=== PATIENT | female | born 1985 | race Caucasian/White ===

== ENCOUNTER 2017-05-02 11:16 | Inpatient (IN) | payer BC ==
[~2017-05-02] VITALS: Ht 157.5 cm; Wt 48.8 kg
[2017-05-02] MEDS ORDERED: PERCOT PO (11:59)
[2017-05-02] MEDS ORDERED: ALPRAZolam 0.5 MG TAB PO PRN (12:00)
[2017-05-02] MEDS: SODIUM CHLORIDE 0.9% 1,000 ML IV SCH ×2 (12:00→20:39)
[2017-05-02 12:30] VITALS: BP 124/74
[2017-05-02] MEDS: MORPHINE SULF INJ 2 MG/ML SYRINGE 1ML IV PRN ×2 (12:43→17:15)
[2017-05-02 14:00] VITALS: BP 107/71
[2017-05-02 14:33] LABS: Basophils # (auto) 0 uL; Basophils % (auto) 0.2 % (0.0-2.0); DEFINITIVE VIEW TRANSMISSION; Eosinophils # (auto) 0.1 uL; Eosinophils % (auto) 0.7 % (0.0-7.0); Hematocrit 23.9 % (36.0-46.0); Hemoglobin 7.1 g/dL (12.2-16.2); Lymphocytes # (auto) 2.3 uL; Lymphocytes % (auto) 18.3 % (10.0-50.0); Mean Corpuscular Hemoglobin 18.4 pg (28.0-32.0); Mean Corpuscular Hgb Conc. 29.9 g/dL (32.0-36.0); Mean Corpuscular Volume 61.7 fL (80.0-100.0); Mean Platelet Volume 10.1 fL (7.4-10.4); Monocytes % (auto) 15.9 % (0.0-12.0); Neutrophils # (auto) 8.1 uL; Neutrophils % (auto) 64.9 % (37.0-80.0); Platelet Count (auto) 352 10^3/uL (140-450); Red Cell Distribution Width 19.1 % (11.6-16.0); White Blood Cell 12.4 10^3/uL (4.4-10.8)
[2017-05-02] MEDS: metroNIDAZOLE 500MG/100ML 100 ML IV SCH ×2 (14:49→21:46)
[2017-05-02] MEDS: HYDROcodone-ACET 10/325MG TAB PO PRN (14:49)
[2017-05-02 15:22] LABS: Potassium 3.4 mmol/L (3.5-5.1)
[2017-05-02 15:27] LABS: Albumin 2.6 g/dL (3.4-5.0); BUN/Creatinine Ratio 23.2; Calcium 8.2 mg/dL (8.5-10.1)
[2017-05-02 15:32] LABS: Bilirubin, Total 0.2 mg/dL (0.2-1.0); Total Protein 6.3 g/dL (6.4-8.2)
[2017-05-02 17:02] VITALS: BP 106/62
[2017-05-02 17:21] LABS: Hypochromia Marked; Microcytosis Marked
[2017-05-02 17:22] LABS: Anisocytosis Moderate; Ovalocytes FEW; Platelet Estimate Adequate; Polychromasia Slight; Stomatocytes Moderate; Tear Drop Cells FEW
[2017-05-02] MEDS: HYDROmorphone HCL 2 MG/ML VL IV PRN (20:34)
[2017-05-02] MEDS: methylPREDNISolone SOD SUCC 125 MG/2 ML VL IV SCH (21:47)
[2017-05-02 22:00] VITALS: BP 110/65
[2017-05-02] MEDS ORDERED: CIPROFLOXACIN 400MG/200ML 200 ML IV SCH (22:00)
[2017-05-03] VITALS (9 sets, daily range): BP systolic 99–116; BP diastolic 53–76
[2017-05-03] MEDS: HYDROmorphone HCL 2 MG/ML VL IV PRN ×7 (00:30→22:00)
[2017-05-03] MEDS: SODIUM CHLORIDE 0.9% 1,000 ML IV SCH ×3 (04:05→20:11)
[2017-05-03] MEDS: HYDROcodone-ACET 10/325MG TAB PO PRN ×3 (04:14→14:06)
[2017-05-03] MEDS: metroNIDAZOLE 500MG/100ML 100 ML IV SCH ×3 (06:36→21:48)
[2017-05-03 06:56] LABS: DEFINITIVE VIEW TRANSMISSION; Hematocrit 21.1 % (36.0-46.0); Mean Corpuscular Hemoglobin 18.4 pg (28.0-32.0); Mean Corpuscular Hgb Conc. 30.1 g/dL (32.0-36.0); Mean Corpuscular Volume 61.2 fL (80.0-100.0); Mean Platelet Volume 8.7 fL (7.4-10.4); Platelet Count (auto) 291 10^3/uL (140-450); Red Cell Distribution Width 18.7 % (11.6-16.0); SUSPECT VIEW TRANSMISSION; White Blood Cell 10.1 10^3/uL (4.4-10.8)
[2017-05-03 07:09] LABS: Hemoglobin 6.4 g/dL (12.2-16.2)
[2017-05-03 07:10] LABS: Metamyelocytes % 0; Myelocytes % 0; Promyelocytes % 0; Reactive Lymphocytes 0
[2017-05-03 07:30] LABS: Albumin 2.4 g/dL (3.4-5.0); BUN/Creatinine Ratio 15.3; Bilirubin, Total 0.2 mg/dL (0.2-1.0); Calcium 7.8 mg/dL (8.5-10.1); Total Protein 5.6 g/dL (6.4-8.2)
[2017-05-03 07:35] LABS: Anisocytosis Moderate; Hypochromia Marked; Microcytosis Moderate; Platelet Estimate Adequate; Polychromasia Slight; Schistocytes FEW
[2017-05-03] MEDS: methylPREDNISolone SOD SUCC 125 MG/2 ML VL IV SCH ×2 (10:20→21:48)
[2017-05-03] MEDS: VANCOMYCIN HCL 125MG/5ML ORAL SOL PO SCH ×2 (14:02→17:54)
[2017-05-03 17:01] LABS: Hematocrit 27.3 % (36.0-46.0); Hemoglobin 8.3 g/dL (12.2-16.2)
[2017-05-04] MEDS: VANCOMYCIN HCL 125MG/5ML ORAL SOL PO SCH ×4 (00:10→18:08)
[2017-05-04] MEDS: HYDROmorphone HCL 2 MG/ML VL IV PRN ×6 (02:33→21:12)
[2017-05-04] MEDS: SODIUM CHLORIDE 0.9% 1,000 ML IV SCH ×3 (04:24→21:04)
[2017-05-04 05:24] VITALS: BP 115/78
[2017-05-04] MEDS: metroNIDAZOLE 500MG/100ML 100 ML IV SCH ×3 (05:33→21:08)
[2017-05-04 05:43] LABS: Basophils # (auto) 0 uL; DEFINITIVE VIEW TRANSMISSION; Eosinophils # (auto) 0 uL; Eosinophils % (auto) 0.1 % (0.0-7.0); Hematocrit 25.9 % (36.0-46.0); Hemoglobin 7.7 g/dL (12.2-16.2); Lymphocytes # (auto) 1.3 uL; Lymphocytes % (auto) 8.1 % (10.0-50.0); Mean Corpuscular Hemoglobin 20.4 pg (28.0-32.0); Mean Corpuscular Hgb Conc. 29.8 g/dL (32.0-36.0); Mean Corpuscular Volume 68.4 fL (80.0-100.0); Mean Platelet Volume 10.1 fL (7.4-10.4); Monocytes # (auto) 1.5 uL; Monocytes % (auto) 9.3 % (0.0-12.0); Neutrophils # (auto) 13.3 uL; Neutrophils % (auto) 82.5 % (37.0-80.0); Platelet Count (auto) 319 10^3/uL (140-450); SUSPECT VIEW TRANSMISSION; White Blood Cell 16.1 10^3/uL (4.4-10.8)
[2017-05-04 05:59] LABS: Albumin 2.2 g/dL (3.4-5.0); Calcium 7.4 mg/dL (8.5-10.1); Potassium 4.6 mmol/L (3.5-5.1)
[2017-05-04 06:01] LABS: BUN/Creatinine Ratio 12.7
[2017-05-04 06:04] LABS: Bilirubin, Total 0.1 mg/dL (0.2-1.0); Total Protein 5.7 g/dL (6.4-8.2)
[2017-05-04 06:10] LABS: Anisocytosis Moderate; Hypochromia Marked; Microcytosis Marked; Ovalocytes FEW; Platelet Estimate Adequate; Polychromasia Slight
[2017-05-04 08:55] VITALS: BP 97/59
[2017-05-04] MEDS: methylPREDNISolone SOD SUCC 125 MG/2 ML VL IV SCH ×2 (09:07→21:08)
[2017-05-04] MEDS: HYDROcodone-ACET 10/325MG TAB PO PRN (10:40)
[2017-05-04 13:00] VITALS: BP 106/71
[2017-05-04 17:00] VITALS: BP 108/71
[2017-05-04 22:08] VITALS: BP 108/72
[2017-05-05] MEDS: VANCOMYCIN HCL 125MG/5ML ORAL SOL PO SCH ×4 (00:09→18:45)
[2017-05-05] MEDS: HYDROmorphone HCL 2 MG/ML VL IV PRN ×8 (00:09→21:49)
[2017-05-05 04:51] VITALS: BP 111/77
[2017-05-05] MEDS: SODIUM CHLORIDE 0.9% 1,000 ML IV SCH ×3 (05:25→21:48)
[2017-05-05 06:00] LABS: Basophils # (auto) 0 uL; DEFINITIVE VIEW TRANSMISSION; Eosinophils # (auto) 0 uL; Hematocrit 24.1 % (36.0-46.0); Hemoglobin 7.2 g/dL (12.2-16.2); Lymphocytes # (auto) 1.3 uL; Mean Corpuscular Hemoglobin 20.4 pg (28.0-32.0); Mean Corpuscular Volume 68.1 fL (80.0-100.0); Mean Platelet Volume 10.1 fL (7.4-10.4); Monocytes # (auto) 0.9 uL; Monocytes % (auto) 6.1 % (0.0-12.0); Neutrophils # (auto) 12.5 uL; Neutrophils % (auto) 84.9 % (37.0-80.0); Platelet Count (auto) 354 10^3/uL (140-450); SUSPECT VIEW TRANSMISSION; White Blood Cell 14.7 10^3/uL (4.4-10.8)
[2017-05-05 06:06] LABS: Red Cell Distribution Width 24.6 % (11.6-16.0)
[2017-05-05] MEDS: metroNIDAZOLE 500MG/100ML 100 ML IV SCH ×3 (06:11→21:49)
[2017-05-05 06:22] LABS: Albumin 2.2 g/dL (3.4-5.0); BUN/Creatinine Ratio 17.9; Bilirubin, Total 0.1 mg/dL (0.2-1.0); Calcium 7.5 mg/dL (8.5-10.1); Potassium 4.3 mmol/L (3.5-5.1); Total Protein 5.1 g/dL (6.4-8.2)
[2017-05-05 07:46] LABS: Anisocytosis Moderate; Hypochromia Marked; Microcytosis Marked
[2017-05-05 07:47] LABS: Ovalocytes FEW; Platelet Estimate Adequate; Tear Drop Cells FEW
[2017-05-05 07:48] LABS: Burr Cells FEW
[2017-05-05 09:00] VITALS: BP 117/79
[2017-05-05] MEDS: methylPREDNISolone SOD SUCC 125 MG/2 ML VL IV SCH ×2 (09:16→21:48)
[2017-05-05 12:37] VITALS: BP 121/75
[2017-05-05 17:00] VITALS: BP 128/74
[2017-05-05] MEDS: ZOLPIDEM TARTRATE 5 MG TAB PO PRN (21:49)
[2017-05-05 21:52] VITALS: BP 121/80
[2017-05-06] MEDS: VANCOMYCIN HCL 125MG/5ML ORAL SOL PO SCH ×4 (00:07→18:28)
[2017-05-06] MEDS: HYDROmorphone HCL 2 MG/ML VL IV PRN ×7 (02:05→21:48)
[2017-05-06] MEDS: SODIUM CHLORIDE 0.9% 1,000 ML IV SCH ×3 (02:05→20:39)
[2017-05-06 05:08] VITALS: BP 115/74
[2017-05-06] MEDS: metroNIDAZOLE 500MG/100ML 100 ML IV SCH ×3 (05:18→21:47)
[2017-05-06 06:18] LABS: Potassium 3.9 mmol/L (3.5-5.1)
[2017-05-06 06:24] LABS: Albumin 2.5 g/dL (3.4-5.0); BUN/Creatinine Ratio 11.4; Calcium 8.1 mg/dL (8.5-10.1)
[2017-05-06 06:26] LABS: Bilirubin, Total 0.1 mg/dL (0.2-1.0); Total Protein 6.1 g/dL (6.4-8.2)
[2017-05-06 06:45] LABS: DEFINITIVE VIEW TRANSMISSION; Hematocrit 28.5 % (36.0-46.0); Hemoglobin 8.6 g/dL (12.2-16.2); Mean Corpuscular Hemoglobin 20.5 pg (28.0-32.0); Mean Corpuscular Hgb Conc. 30.1 g/dL (32.0-36.0); Mean Platelet Volume 9.1 fL (7.4-10.4); Platelet Count (auto) 359 10^3/uL (140-450); Red Cell Distribution Width 24.8 % (11.6-16.0); SUSPECT VIEW TRANSMISSION
[2017-05-06 06:46] LABS: Metamyelocytes % 0; Promyelocytes % 0; Reactive Lymphocytes 0
[2017-05-06 07:14] LABS: Myelocytes % 1
[2017-05-06 07:15] LABS: Anisocytosis Moderate; Hypochromia Marked; Microcytosis Marked; Platelet Estimate Adequate
[2017-05-06 07:17] LABS: Burr Cells FEW; Ovalocytes FEW; Tear Drop Cells FEW
[2017-05-06 09:00] VITALS: BP 112/74
[2017-05-06] MEDS: methylPREDNISolone SOD SUCC 125 MG/2 ML VL IV SCH ×2 (09:05→21:47)
[2017-05-06 17:00] VITALS: BP 126/76
[2017-05-06 22:28] VITALS: BP 136/82
[2017-05-07] MEDS: VANCOMYCIN HCL 125MG/5ML ORAL SOL PO SCH ×4 (00:40→17:48)
[2017-05-07] MEDS: ZOLPIDEM TARTRATE 5 MG TAB PO PRN (00:41)
[2017-05-07] MEDS: HYDROmorphone HCL 2 MG/ML VL IV PRN ×6 (00:42→20:45)
[2017-05-07] MEDS: SODIUM CHLORIDE 0.9% 1,000 ML IV SCH ×3 (04:39→20:00)
[2017-05-07 05:06] VITALS: BP 134/68
[2017-05-07] MEDS: metroNIDAZOLE 500MG/100ML 100 ML IV SCH ×3 (06:10→23:31)
[2017-05-07 08:49] VITALS: BP 134/79
[2017-05-07] MEDS: methylPREDNISolone SOD SUCC 125 MG/2 ML VL IV SCH ×2 (09:50→23:32)
[2017-05-07 12:52] VITALS: BP 138/90
[2017-05-07] MEDS: HYDROcodone-ACET 10/325MG TAB PO PRN (14:29)
[2017-05-07] MEDS ORDERED: MULTIPLE VITAMINS W/ MINERALS TAB PO ONE (16:30)
[2017-05-07 16:42] VITALS: BP 132/88
[2017-05-07] MEDS ORDERED: SODIUM FERR GLUC 62.5MG/5ML 125 MG in SODIUM CHL 0.9% 100 ML IV ONE (19:45)
[2017-05-07 22:00] VITALS: BP 126/85
[2017-05-08] MEDS: HYDROmorphone HCL 2 MG/ML VL IV PRN ×7 (00:09→21:54)
[2017-05-08] MEDS: VANCOMYCIN HCL 125MG/5ML ORAL SOL PO SCH ×4 (00:20→17:33)
[2017-05-08] MEDS: SODIUM CHLORIDE 0.9% 1,000 ML IV SCH ×3 (04:00→22:00)
[2017-05-08 04:51] VITALS: BP 129/93
[2017-05-08] MEDS: metroNIDAZOLE 500MG/100ML 100 ML IV SCH ×3 (06:02→22:00)
[2017-05-08 08:11] VITALS: BP 128/83
[2017-05-08] MEDS: ONDANSETRON HCL 4 MG/2 ML VIAL IV PRN (09:58)
[2017-05-08] MEDS: methylPREDNISolone SOD SUCC 125 MG/2 ML VL IV SCH ×2 (09:58→21:57)
[2017-05-08] MEDS: MULTIPLE VITAMINS W/ MINERALS TAB PO SCH (09:58)
[2017-05-08] MEDS: SODIUM FERR GLUC 62.5MG/5ML 125 MG in SODIUM CHL 0.9% 100 ML IV SCH (10:00)
[2017-05-08] MEDS ORDERED: SODIUM FERR GLUC 62.5MG/5ML 125 MG in SODIUM CHL 0.9% 100 ML IV SCH (10:00)
[2017-05-08 12:52] VITALS: BP 141/74
[2017-05-08 16:38] VITALS: BP 130/90
[2017-05-08] MEDS: ZOLPIDEM TARTRATE 5 MG TAB PO PRN (21:57)
[2017-05-08 22:00] VITALS: BP 129/75
[2017-05-08] MEDS: METRONIDAZOLE VAGINAL PV SCH (22:00)
[2017-05-09] MEDS: VANCOMYCIN HCL 125MG/5ML ORAL SOL PO SCH ×6 (00:13→23:56)
[2017-05-09] MEDS: HYDROmorphone HCL 2 MG/ML VL IV PRN ×8 (01:11→23:56)
[2017-05-09] MEDS: SODIUM CHLORIDE 0.9% 1,000 ML IV SCH ×3 (04:47→20:03)
[2017-05-09 05:00] VITALS: BP 132/78
[2017-05-09 05:41] LABS: DEFINITIVE VIEW TRANSMISSION; Hematocrit 26.1 % (36.0-46.0); Hemoglobin 8.1 g/dL (12.2-16.2); Mean Corpuscular Hemoglobin 20.7 pg (28.0-32.0); Mean Corpuscular Volume 66.8 fL (80.0-100.0); Mean Platelet Volume 9.1 fL (7.4-10.4); Platelet Count (auto) 330 10^3/uL (140-450); SUSPECT VIEW TRANSMISSION; White Blood Cell 21.4 10^3/uL (4.4-10.8)
[2017-05-09 05:42] LABS: Red Cell Distribution Width 25.9 % (11.6-16.0)
[2017-05-09 05:43] LABS: Metamyelocytes % 0; Myelocytes % 0; Promyelocytes % 0; Reactive Lymphocytes 0
[2017-05-09 05:49] LABS: Albumin 2.2 g/dL (3.4-5.0); BUN/Creatinine Ratio 14.5; Calcium 7.3 mg/dL (8.5-10.1); Potassium 3.9 mmol/L (3.5-5.1)
[2017-05-09 05:51] LABS: Bilirubin, Total 0.1 mg/dL (0.2-1.0); Total Protein 5.3 g/dL (6.4-8.2)
[2017-05-09 06:20] LABS: Platelet Estimate Adequate
[2017-05-09 06:21] LABS: Anisocytosis Marked; Hypochromia Marked; Microcytosis Marked; Polychromasia Slight; Stomatocytes Few
[2017-05-09 06:22] LABS: Ovalocytes FEW
[2017-05-09] MEDS: metroNIDAZOLE 500MG/100ML 100 ML IV SCH ×3 (06:23→21:41)
[2017-05-09 08:00] VITALS: BP 145/74
[2017-05-09 09:00] VITALS: BP_SYST 129; BP_SYST 145; BP_DIAS 70; BP_DIAS 74
[2017-05-09] MEDS: SODIUM FERR GLUC 62.5MG/5ML 125 MG in SODIUM CHL 0.9% 100 ML IV SCH (10:58)
[2017-05-09] MEDS: methylPREDNISolone SOD SUCC 125 MG/2 ML VL IV SCH ×2 (10:58→20:31)
[2017-05-09] MEDS: MULTIPLE VITAMINS W/ MINERALS TAB PO SCH (10:59)
[2017-05-09] MEDS: ONDANSETRON HCL 4 MG/2 ML VIAL IV PRN (10:59)
[2017-05-09 13:00] VITALS: BP 131/88
[2017-05-09 17:00] VITALS: BP 134/79
[2017-05-09] MEDS: ZOLPIDEM TARTRATE 5 MG TAB PO PRN (20:31)
[2017-05-09] MEDS: METRONIDAZOLE VAGINAL PV SCH (21:41)
[2017-05-09 22:00] VITALS: BP 136/73
[2017-05-10] MEDS: HYDROmorphone HCL 2 MG/ML VL IV PRN ×6 (04:47→21:50)
[2017-05-10] MEDS: SODIUM CHLORIDE 0.9% 1,000 ML IV SCH ×3 (04:47→20:00)
[2017-05-10] MEDS: VANCOMYCIN HCL 125MG/5ML ORAL SOL PO SCH ×3 (05:44→18:28)
[2017-05-10] MEDS: metroNIDAZOLE 500MG/100ML 100 ML IV SCH ×3 (05:44→21:50)
[2017-05-10 06:22] LABS: Calcium 7.7 mg/dL (8.5-10.1); DEFINITIVE VIEW TRANSMISSION; Hematocrit 24.7 % (36.0-46.0); Hemoglobin 7.4 g/dL (12.2-16.2); Mean Corpuscular Hemoglobin 20.5 pg (28.0-32.0); Mean Corpuscular Volume 68.2 fL (80.0-100.0); Mean Platelet Volume 9.3 fL (7.4-10.4); Platelet Count (auto) 418 10^3/uL (140-450); Potassium 4.1 mmol/L (3.5-5.1); Red Cell Distribution Width 26.4 % (11.6-16.0); SUSPECT VIEW TRANSMISSION; White Blood Cell 24.9 10^3/uL (4.4-10.8)
[2017-05-10 06:23] LABS: Promyelocytes % 0; Reactive Lymphocytes 0
[2017-05-10 06:26] LABS: Albumin 2.3 g/dL (3.4-5.0); BUN/Creatinine Ratio 15.6
[2017-05-10 06:34] LABS: Bilirubin, Total 0.1 mg/dL (0.2-1.0); Total Protein 5.2 g/dL (6.4-8.2)
[2017-05-10 08:12] LABS: Metamyelocytes % 2; Myelocytes % 3
[2017-05-10 08:14] LABS: Hypochromia Marked; Microcytosis Marked
[2017-05-10 08:15] LABS: Anisocytosis Marked; Platelet Estimate Adequate; Polychromasia Slight
[2017-05-10 09:00] VITALS: BP 128/84
[2017-05-10] MEDS: CIPROFLOXACIN 400MG/200ML 200 ML IV SCH ×2 (09:29→21:50)
[2017-05-10] MEDS: methylPREDNISolone SOD SUCC 125 MG/2 ML VL IV SCH ×2 (09:29→21:50)
[2017-05-10] MEDS: MULTIPLE VITAMINS W/ MINERALS TAB PO SCH (09:29)
[2017-05-10] MEDS: ONDANSETRON HCL 4 MG/2 ML VIAL IV PRN (10:52)
[2017-05-10] MEDS: SODIUM FERR GLUC 62.5MG/5ML 125 MG in SODIUM CHL 0.9% 100 ML IV SCH (10:53)
[2017-05-10 13:00] VITALS: BP 139/77
[2017-05-10 17:00] VITALS: BP 128/81
[2017-05-10 20:00] VITALS: BP 124/70
[2017-05-10] MEDS: METRONIDAZOLE VAGINAL PV SCH (21:51)
[2017-05-10] MEDS: ZOLPIDEM TARTRATE 5 MG TAB PO PRN (22:10)
[2017-05-10 22:20] VITALS: BP 124/70
[2017-05-11] MEDS: VANCOMYCIN HCL 125MG/5ML ORAL SOL PO SCH ×3 (00:33→12:00)
[2017-05-11] MEDS: HYDROmorphone HCL 2 MG/ML VL IV PRN ×8 (00:51→23:24)
[2017-05-11] MEDS: SODIUM CHLORIDE 0.9% 1,000 ML IV SCH ×3 (04:38→20:00)
[2017-05-11 05:26] VITALS: BP 128/77
[2017-05-11] MEDS: metroNIDAZOLE 500MG/100ML 100 ML IV SCH ×3 (06:03→21:51)
[2017-05-11 07:14] LABS: DEFINITIVE Y; Hematocrit 25.5 % (36.0-46.0); Hemoglobin 7.8 g/dL (12.2-16.2); Mean Corpuscular Hemoglobin 21.2 pg (28.0-32.0); Mean Corpuscular Hgb Conc. 30.5 g/dL (32.0-36.0); Mean Corpuscular Volume 69.5 fL (80.0-100.0); Platelet Count (auto) 373 10^3/uL (140-450); SUSPECT Y; White Blood Cell 28.5 10^3/uL (4.4-10.8)
[2017-05-11 07:30] LABS: Albumin 2.4 g/dL (3.4-5.0); BUN/Creatinine Ratio 17.1; Calcium 7.7 mg/dL (8.5-10.1)
[2017-05-11 07:33] LABS: Bilirubin, Total 0.1 mg/dL (0.2-1.0); Total Protein 5.4 g/dL (6.4-8.2)
[2017-05-11 07:40] LABS: Red Cell Distribution Width 26.5 % (11.6-16.0)
[2017-05-11 07:41] LABS: Metamyelocytes % 0; Promyelocytes % 0; Reactive Lymphocytes 0
[2017-05-11 08:29] VITALS: BP 148/78
[2017-05-11] MEDS: SODIUM FERR GLUC 62.5MG/5ML 125 MG in SODIUM CHL 0.9% 100 ML IV SCH (10:51)
[2017-05-11] MEDS: CIPROFLOXACIN 400MG/200ML 200 ML IV SCH ×2 (10:51→21:51)
[2017-05-11] MEDS: MULTIPLE VITAMINS W/ MINERALS TAB PO SCH (10:51)
[2017-05-11] MEDS: methylPREDNISolone SOD SUCC 125 MG/2 ML VL IV SCH ×2 (10:51→21:51)
[2017-05-11] MEDS: ONDANSETRON HCL 4 MG/2 ML VIAL IV PRN (10:57)
[2017-05-11 12:41] VITALS: BP 138/72
[2017-05-11 15:11] LABS: Myelocytes % 1
[2017-05-11 15:12] LABS: Microcytosis Marked; Platelet Estimate Adequate
[2017-05-11 15:15] LABS: Anisocytosis Marked; Hypochromia Moderate
[2017-05-11 15:16] LABS: Polychromasia Slight; Stomatocytes Few; Tear Drop Cells FEW
[2017-05-11] MEDS: VANCOMYCIN HCL 500MG/5ML ORAL SOL PO SCH ×2 (18:00→21:52)
[2017-05-11 20:00] VITALS: BP 148/82
[2017-05-11] MEDS: ZOLPIDEM TARTRATE 5 MG TAB PO PRN (21:52)
[2017-05-11] MEDS: METRONIDAZOLE VAGINAL PV SCH (21:52)
[2017-05-11 22:29] VITALS: BP 148/82
[2017-05-12] MEDS: HYDROmorphone HCL 2 MG/ML VL IV PRN ×6 (04:01→21:57)
[2017-05-12] MEDS: SODIUM CHLORIDE 0.9% 1,000 ML IV SCH ×3 (04:02→21:38)
[2017-05-12 05:15] VITALS: BP 138/90
[2017-05-12] MEDS: metroNIDAZOLE 500MG/100ML 100 ML IV SCH ×3 (05:42→21:39)
[2017-05-12] MEDS: VANCOMYCIN HCL 500MG/5ML ORAL SOL PO SCH ×4 (05:43→21:39)
[2017-05-12 06:32] LABS: CONDITION Y; DEFINITIVE Y; Hematocrit 25.6 % (36.0-46.0); Hemoglobin 7.9 g/dL (12.2-16.2); Mean Corpuscular Hemoglobin 21.5 pg (28.0-32.0); Mean Corpuscular Hgb Conc. 30.8 g/dL (32.0-36.0); Mean Corpuscular Volume 69.8 fL (80.0-100.0); Mean Platelet Volume 10.2 fL (7.4-10.4); Platelet Count (auto) 436 10^3/uL (140-450); SUSPECT Y
[2017-05-12 06:35] LABS: Red Cell Distribution Width 26.2 % (11.6-16.0)
[2017-05-12 06:46] LABS: Metamyelocytes % 0; Myelocytes % 0; Promyelocytes % 0; Reactive Lymphocytes 0; White Blood Cell 30.3 10^3/uL (4.4-10.8)
[2017-05-12 06:54] LABS: Albumin 2.4 g/dL (3.4-5.0); BUN/Creatinine Ratio 16.9; Calcium 7.6 mg/dL (8.5-10.1)
[2017-05-12 06:56] LABS: Bilirubin, Total 0.2 mg/dL (0.2-1.0); Total Protein 5.2 g/dL (6.4-8.2)
[2017-05-12 08:36] VITALS: BP 151/91
[2017-05-12] MEDS: methylPREDNISolone SOD SUCC 125 MG/2 ML VL IV SCH ×2 (10:51→21:39)
[2017-05-12] MEDS: CIPROFLOXACIN 400MG/200ML 200 ML IV SCH ×2 (10:51→21:39)
[2017-05-12] MEDS: SODIUM FERR GLUC 62.5MG/5ML 125 MG in SODIUM CHL 0.9% 100 ML IV SCH (10:51)
[2017-05-12] MEDS: MULTIPLE VITAMINS W/ MINERALS TAB PO SCH (10:52)
[2017-05-12] MEDS: ONDANSETRON HCL 4 MG/2 ML VIAL IV PRN (11:04)
[2017-05-12 13:00] VITALS: BP 143/77
[2017-05-12 13:25] LABS: Anisocytosis Slight; Hypochromia Slight; Platelet Estimate Adequate
[2017-05-12 17:00] VITALS: BP 132/79
[2017-05-12] MEDS: METRONIDAZOLE VAGINAL PV SCH (21:39)
[2017-05-12] MEDS: ZOLPIDEM TARTRATE 5 MG TAB PO PRN (21:56)
[2017-05-12 22:00] VITALS: BP 149/97
[2017-05-13] MEDS: HYDROmorphone HCL 2 MG/ML VL IV PRN ×7 (01:37→21:41)
[2017-05-13] MEDS: SODIUM CHLORIDE 0.9% 1,000 ML IV SCH ×3 (04:26→21:43)
[2017-05-13 05:00] VITALS: BP 144/76
[2017-05-13] MEDS: metroNIDAZOLE 500MG/100ML 100 ML IV SCH ×3 (05:56→21:18)
[2017-05-13] MEDS: VANCOMYCIN HCL 500MG/5ML ORAL SOL PO SCH (05:56)
[2017-05-13 07:23] LABS: CONDITION AutoValidated; DEFINITIVE SEE PRINTOUT; Hematocrit 26.9 % (36.0-46.0); Hemoglobin 8.1 g/dL (12.2-16.2); Mean Corpuscular Hemoglobin 21.6 pg (28.0-32.0); Mean Corpuscular Hgb Conc. 30.1 g/dL (32.0-36.0); Mean Corpuscular Volume 71.7 fL (80.0-100.0); Mean Platelet Volume 9.7 fL (7.4-10.4); Platelet Count (auto) 426 10^3/uL (140-450); SUSPECT SEE PRINTOUT
[2017-05-13 07:25] LABS: Red Cell Distribution Width 26.2 % (11.6-16.0)
[2017-05-13 07:27] LABS: Metamyelocytes % 0; Myelocytes % 0; Promyelocytes % 0; Reactive Lymphocytes 0; White Blood Cell 32.2 10^3/uL (4.4-10.8)
[2017-05-13 07:49] LABS: Anisocytosis Moderate; Hypochromia Moderate; Ovalocytes FEW; Platelet Estimate Adequate
[2017-05-13 07:51] LABS: Albumin 2.4 g/dL (3.4-5.0); BUN/Creatinine Ratio 15.7; Bilirubin, Total 0.3 mg/dL (0.2-1.0); Calcium 7.7 mg/dL (8.5-10.1); Potassium 4.1 mmol/L (3.5-5.1); Total Protein 5.1 g/dL (6.4-8.2)
[2017-05-13 08:00] VITALS: BP 158/75
[2017-05-13 09:00] VITALS: BP 158/75
[2017-05-13] MEDS: CIPROFLOXACIN 400MG/200ML 200 ML IV SCH ×2 (09:39→23:36)
[2017-05-13] MEDS: predniSONE 20 MG TAB PO SCH (09:40)
[2017-05-13] MEDS: MULTIPLE VITAMINS W/ MINERALS TAB PO SCH (09:40)
[2017-05-13] MEDS: DICYCLOMINE HCL 10 MG CAP PO SCH ×3 (11:18→21:43)
[2017-05-13] MEDS: VANCOMYCIN HCL 125MG/5ML ORAL SOL PO SCH ×3 (11:18→21:43)
[2017-05-13 13:00] VITALS: BP 142/84
[2017-05-13 17:00] VITALS: BP 135/88
[2017-05-13 22:56] VITALS: BP 125/76
[2017-05-13] MEDS: ZOLPIDEM TARTRATE 5 MG TAB PO PRN (23:35)
[2017-05-13] MEDS: METRONIDAZOLE VAGINAL PV SCH (23:36)
[2017-05-14] VITALS (7 sets, daily range): BP systolic 109–123; BP diastolic 60–76
[2017-05-14] MEDS: HYDROmorphone HCL 2 MG/ML VL IV PRN ×7 (00:47→21:22)
[2017-05-14] MEDS: SODIUM CHLORIDE 0.9% 1,000 ML IV SCH ×3 (04:40→21:23)
[2017-05-14] MEDS: metroNIDAZOLE 500MG/100ML 100 ML IV SCH ×3 (05:33→21:22)
[2017-05-14] MEDS: DICYCLOMINE HCL 10 MG CAP PO SCH ×4 (05:33→21:23)
[2017-05-14] MEDS: VANCOMYCIN HCL 125MG/5ML ORAL SOL PO SCH ×4 (05:34→21:23)
[2017-05-14 05:40] LABS: CONDITION AutoValidated; DEFINITIVE SEE PRINTOUT; Hematocrit 26.5 % (36.0-46.0); Mean Corpuscular Hemoglobin 22.1 pg (28.0-32.0); Mean Corpuscular Hgb Conc. 30.1 g/dL (32.0-36.0); Mean Corpuscular Volume 73.6 fL (80.0-100.0); Mean Platelet Volume 9.7 fL (7.4-10.4); Platelet Count (auto) 382 10^3/uL (140-450); SUSPECT SEE PRINTOUT
[2017-05-14 05:43] LABS: Red Cell Distribution Width 26.6 % (11.6-16.0)
[2017-05-14 05:44] LABS: Metamyelocytes % 0; Myelocytes % 0; Promyelocytes % 0; Reactive Lymphocytes 0
[2017-05-14 05:53] LABS: Calcium 7.2 mg/dL (8.5-10.1); Potassium 3.4 mmol/L (3.5-5.1)
[2017-05-14 05:55] LABS: Albumin 2.4 g/dL (3.4-5.0); BUN/Creatinine Ratio 17.6
[2017-05-14 05:58] LABS: Bilirubin, Total 0.3 mg/dL (0.2-1.0); Total Protein 5.1 g/dL (6.4-8.2)
[2017-05-14 07:59] LABS: Anisocytosis Slight; Hypochromia Slight; Platelet Estimate Adequate; Polychromasia Slight
[2017-05-14] MEDS: predniSONE 20 MG TAB PO SCH (10:00)
[2017-05-14] MEDS: CIPROFLOXACIN 400MG/200ML 200 ML IV SCH ×2 (10:00→22:44)
[2017-05-14] MEDS: MULTIPLE VITAMINS W/ MINERALS TAB PO SCH (10:00)
[2017-05-14] MEDS: ZOLPIDEM TARTRATE 5 MG TAB PO PRN (22:44)
[2017-05-14] MEDS: METRONIDAZOLE VAGINAL PV SCH (22:44)
[2017-05-15] MEDS: HYDROmorphone HCL 2 MG/ML VL IV PRN ×3 (00:29→10:07)
[2017-05-15] MEDS: SODIUM CHLORIDE 0.9% 1,000 ML IV SCH (04:07)
[2017-05-15] MEDS: VANCOMYCIN HCL 125MG/5ML ORAL SOL PO SCH (05:54)
[2017-05-15] MEDS: DICYCLOMINE HCL 10 MG CAP PO SCH (05:54)
[2017-05-15] MEDS: metroNIDAZOLE 500MG/100ML 100 ML IV SCH (05:54)
[2017-05-15 06:00] VITALS: BP 114/70
[2017-05-15 06:01] LABS: CONDITION AutoValidated; DEFINITIVE SEE PRINTOUT; Hematocrit 30.7 % (36.0-46.0); Hemoglobin 9.3 g/dL (12.2-16.2); Mean Corpuscular Hemoglobin 22.7 pg (28.0-32.0); Mean Corpuscular Hgb Conc. 30.1 g/dL (32.0-36.0); Mean Corpuscular Volume 75.3 fL (80.0-100.0); Mean Platelet Volume 9.6 fL (7.4-10.4); Platelet Count (auto) 391 10^3/uL (140-450); Red Cell Distribution Width 27.2 % (11.6-16.0); SUSPECT SEE PRINTOUT; White Blood Cell 26.1 10^3/uL (4.4-10.8)
[2017-05-15 06:26] LABS: Albumin 2.6 g/dL (3.4-5.0); BUN/Creatinine Ratio 15.9; Calcium 7.5 mg/dL (8.5-10.1); Potassium 3.8 mmol/L (3.5-5.1)
[2017-05-15 06:41] LABS: Metamyelocytes % 0; Myelocytes % 0; Promyelocytes % 0; Reactive Lymphocytes 0
[2017-05-15 06:53] LABS: Bilirubin, Total 0.3 mg/dL (0.2-1.0); Total Protein 5.6 g/dL (6.4-8.2)
[2017-05-15 07:29] LABS: Anisocytosis Slight; Hypochromia Slight; Platelet Estimate Adequate; Polychromasia Slight
[2017-05-15 08:00] VITALS: BP 134/63
[2017-05-15 09:00] VITALS: BP 134/64
[2017-05-15] MEDS: predniSONE 20 MG TAB PO SCH (10:00)
[2017-05-15] MEDS: CIPROFLOXACIN 400MG/200ML 200 ML IV SCH (10:00)
[2017-05-15] MEDS: MULTIPLE VITAMINS W/ MINERALS TAB PO SCH (10:00)
== END 2017-05-15 11:30 | disposition home or self-care (01) | DRG 385 ==
LOC: TELE-E-ADS 11:16 → WEST WING 13:58
PROVIDERS: ADMIT Internal Medicine; ATTEND Internal Medicine
PROC: 30233N1 Transfusion of Nonautologous Red Blood Cells into Peripheral Vein, Percutaneous Approach (ICD-10-PCS; principal; 2017-05-03)
DX: K51.90 Ulcerative colitis, unspecified, without complications (principal); E43 Unspecified severe protein-calorie malnutrition; D62 Acute posthemorrhagic anemia; Z68.1 Body mass index [BMI] 19.9 or less, adult; A04.7 Enterocolitis due to Clostridium difficile; E86.0 Dehydration
CPT/HCPCS: 36415; 74020; 80053; 82270; 85007; 85014; 85018; 85025; 85027; 86850; 86900; 86901; 86920; 87493; J2405; J3490